=== PATIENT | female | born 1965 | race Asian ===

== ENCOUNTER 2025-05-10 11:02 | Inpatient (IN) | payer OTHER, MEDICAID ==
[~2025-05-10] VITALS: Ht 162.6 cm; Wt 84.4 kg
[2025-05-10 11:38] LABS: BASOPHILS % (AUTO) 1.3 % (0.0-2.0); HEMATOCRIT 24.4 % (36-46); HEMOGLOBIN 8.3 g/dL (12.0-16.0); LYMPHOCYTES % (AUTO) 15.3 % (22.0-44.0); MEAN CORPUSCULAR VOLUME 91 fL (80-100); MONOCYTES # (AUTO) 0.3 K/uL (0.1-1.0); MONOCYTES % (AUTO) 4.8 % (2.0-9.0); NEUTROPHILS # (AUTO) 5.1 K/uL (1.8-7.7); NEUTROPHILS % (AUTO) 76.6 % (40.0-70.0); PLATELET COUNT (AUTO) 215 K/uL (150-450); RED BLOOD CELL COUNT(AUTO) 2.68 MIL/uL (4.00-5.20); RED CELL DISTRIBUTION WIDTH 13.7 % (11.5-14.5); WHITE BLOOD COUNT (AUTO) 6.6 K/uL (4.5-11.0)
[2025-05-10] MEDS: TRANEXAMIC ACID 1,000 MG/10 ML VIAL TP ONE (11:41)
[2025-05-10 11:42] LABS: ANION GAP 5 mmol/L (8-16); CALCIUM, TOTAL 8.2 mg/dL (8.8-10.5); CARBON DIOXIDE 32 mmol/L (22-29); CHLORIDE 100 mmol/L (98-107); CREATININE 7.29 mg/dL (0.60-1.30); GLOMERULAR FILTR. RATE CALC 6 mL/min (>60); GLUCOSE,RANDOM 106 mg/dL (70-110); POTASSIUM 5.2 mmol/L (3.5-5.1); SODIUM SERUM 137 mmol/L (136-145); UREA NITROGEN, BLOOD 54 mg/dL (7-18)
[2025-05-10] MEDS: LIDOCAINE 1%/EPI 1:200,000/PF 10 ML VIAL SQ ONE (11:42)
[2025-05-10 11:48] LABS: BILIRUBIN,DIRECT 0.1 mg/dL (0.00-0.20); BILIRUBIN,TOTAL 0.4 mg/dL (0.1-1.0); TOTAL PROTEIN, SERUM 6.8 g/dL (6.4-8.2)
[2025-05-10 11:53] LABS: TROPONIN I-HIGH SENSITIVITY 142 ng/L (<51)
[2025-05-10 14:01] LABS: TROPONIN I-HIGH SENSITIVITY 133 ng/L (<51)
[2025-05-10] MEDS ORDERED: ONDANSETRON HCL 4 MG/2 ML VIAL IVP PRN (16:00)
[2025-05-10] MEDS ORDERED: ACETAMINOPHEN 325 MG TABLET PO PRN (16:00)
[2025-05-10] MEDS ORDERED: HEPARIN SODIUM,PORCINE 5,000 UNITS/ML VIAL SQ SCH (16:00)
[2025-05-10] MEDS: ASPIRIN 81 MG CHEWABLE TABLET PO ONE (16:09)
[2025-05-10 16:12] LABS: % IRON SATURATION 104.7 % (22-44)
[2025-05-10 17:06] LABS: TROPONIN I-HIGH SENSITIVITY 162 ng/L (<51)
[2025-05-10 21:00] VITALS: BP 121/95; PULSE 85; RESP 18; TEMP 98.2; O2SAT 99
[2025-05-10] MEDS: DOCUSATE SODIUM 100 MG CAPSULE PO SCH (21:00)
[2025-05-10 23:59] LABS: BASOPHILS % (AUTO) 1.9 % (0.0-2.0); EOSINOPHILS % (AUTO) 3.6 % (1.0-6.0); LYMPHOCYTES # (AUTO) 1.7 K/uL (1.0-4.8); LYMPHOCYTES % (AUTO) 32.6 % (22.0-44.0); MEAN CORPUSCULAR HEMOGLOBIN 30.1 pg (26.0-34.0); MEAN CORPUSCULAR VOLUME 91 fL (80-100); MONOCYTES # (AUTO) 0.3 K/uL (0.1-1.0); MONOCYTES % (AUTO) 6.5 % (2.0-9.0); NEUTROPHILS # (AUTO) 2.9 K/uL (1.8-7.7); NEUTROPHILS % (AUTO) 55.4 % (40.0-70.0); PLATELET COUNT (AUTO) 190 K/uL (150-450); RED BLOOD CELL COUNT(AUTO) 2.29 MIL/uL (4.00-5.20); RED CELL DISTRIBUTION WIDTH 13.8 % (11.5-14.5); WHITE BLOOD COUNT (AUTO) 5.2 K/uL (4.5-11.0)
[2025-05-11] VITALS (18 sets, daily range): BP systolic 112–170; BP diastolic 44–84; PULSE 69–85; RESP 17–18; TEMP 98.1–99; O2SAT 98–100
[2025-05-11 00:05] LABS: HEMATOCRIT 20.9 % (36-46); HEMOGLOBIN 6.9 g/dL (12.0-16.0)
[2025-05-11] MEDS ORDERED: SODIUM CHLORIDE 0.9% 250 ML IV ONE (00:43)
[2025-05-11] MEDS: PANTOPRAZOLE SODIUM 80 MG in SODIUM CHLORIDE 0.9% 100 ML IV SCH (01:11)
[2025-05-11] MEDS: PANTOPRAZOLE SODIUM 40 MG/VIAL IVP ONE (06:39)
[2025-05-11 07:15] LABS: GLUCOMETER DEV NAME(LOC) 5N.2C; GLUCOSE,POINT OF CARE 105 MG/DL (70-110)
[2025-05-11 10:11] LABS: BASOPHILS % (AUTO) 1.7 % (0.0-2.0); EOSINOPHILS % (AUTO) 2.5 % (1.0-6.0); HEMATOCRIT 24.7 % (36-46); HEMOGLOBIN 8.3 g/dL (12.0-16.0); LYMPHOCYTES # (AUTO) 1.7 K/uL (1.0-4.8); LYMPHOCYTES % (AUTO) 30.9 % (22.0-44.0); MEAN CORPUSCULAR HEMOGLOBIN 30.8 pg (26.0-34.0); MEAN CORPUSCULAR HGB CONC 33.4 G/dL (31.0-37.0); MEAN CORPUSCULAR VOLUME 92 fL (80-100); MONOCYTES # (AUTO) 0.3 K/uL (0.1-1.0); MONOCYTES % (AUTO) 6.2 % (2.0-9.0); NEUTROPHILS # (AUTO) 3.1 K/uL (1.8-7.7); NEUTROPHILS % (AUTO) 58.7 % (40.0-70.0); PLATELET COUNT (AUTO) 197 K/uL (150-450); RED BLOOD CELL COUNT(AUTO) 2.69 MIL/uL (4.00-5.20); WHITE BLOOD COUNT (AUTO) 5.4 K/uL (4.5-11.0)
[2025-05-11 10:24] LABS: CALCIUM, TOTAL 8.1 mg/dL (8.8-10.5); CREATININE 9.29 mg/dL (0.60-1.30)
[2025-05-11 10:28] LABS: POTASSIUM 6.7 mmol/L (3.5-5.1)
[2025-05-11] MEDS: PANTOPRAZOLE SODIUM 40 MG/VIAL IVP SCH (11:18)
[2025-05-11] MEDS ORDERED: HEPARIN SODIUM,PORCINE 5,000 UNITS/ML VIAL SQ SCH (16:00)
[2025-05-11] MEDS ORDERED: LISI-663 PO (16:15)
[2025-05-11] MEDS ORDERED: SEVE0.8P7 PO (16:15)
[2025-05-11] MEDS ORDERED: NITR0.4T50 SL (16:15)
[2025-05-11] MEDS ORDERED: FOLI0.8T54 PO (16:15)
[2025-05-11] MEDS ORDERED: ATOR40TA71 PO (16:15)
[2025-05-11] MEDS ORDERED: AMLO5TAB66 PO (16:15)
[2025-05-11] MEDS ORDERED: ASPI81TA87 PO (16:15)
[2025-05-11] MEDS ORDERED: METF-1211 PO (16:18)
[2025-05-11] MEDS ORDERED: SEVE800T39 PO (18:10)
[2025-05-11 18:50] LABS: TROPONIN I-HIGH SENSITIVITY 168 ng/L (<51)
[2025-05-11] MEDS: CALCIUM GLUCONATE 100 MG/ML 10 ML IVP ONE ×2 (18:55→23:50)
[2025-05-11] MEDS ORDERED: DEXTROSE 50%-WATER 25 GM/50 ML SYRINGE IVP PRN (19:00)
[2025-05-11] MEDS ORDERED: NITROGLYCERIN 0.4 MG SUBLINGUAL TABLET #25 SL PRN (19:00)
[2025-05-11] MEDS ORDERED: METO50 PO (19:19)
[2025-05-11] MEDS: SODIUM ZIRCONIUM CYCLOSILICATE 10 GM POWDER PACKET PO ONE (19:28)
[2025-05-11] MEDS: SODIUM BICARBONATE [ADULT] 8.4% 50 MEQ/50 ML SYRINGE IVP ONE (19:29)
[2025-05-11] MEDS: DEXTROSE 50%-WATER 25 GM/50 ML SYRINGE IVP ONE ×2 (19:29→23:43)
[2025-05-11] MEDS: INSULIN REGULAR, HUMAN 100 UNITS/ML IVP ONE ×2 (19:35→23:48)
[2025-05-11 22:30] LABS: CALCIUM, TOTAL 8.3 mg/dL (8.8-10.5); CREATININE 9.86 mg/dL (0.60-1.30); POTASSIUM 5.9 mmol/L (3.5-5.1)
[2025-05-11] MEDS: SODIUM POLYSTYRENE SULFONATE 15 GM/60 ML SUSPENSION BOTTLE PO ONE (23:40)
[2025-05-11 23:41] LABS: GLUCOMETER DEV NAME(LOC) 5S.1D; GLUCOSE,POINT OF CARE 93 MG/DL (70-110)
[2025-05-11 23:41] LABS: GLUCOMETER DEV NAME(LOC) 5N.2C; GLUCOSE,POINT OF CARE 131 MG/DL (70-110)
[2025-05-12] VITALS (8 sets, daily range): BP systolic 148–182; BP diastolic 61–84; PULSE 73–97; RESP 17–20; TEMP 98.1–98.8; O2SAT 97–99
[2025-05-12 00:11] LABS: GLUCOMETER DEV NAME(LOC) 5S.1D; GLUCOSE,POINT OF CARE 142 MG/DL (70-110)
[2025-05-12] MEDS ORDERED: 0.9% SODIUM CHLORIDE 5 ML NEB SOLUTION NEB ONE (00:41)
[2025-05-12] MEDS: ALBUTEROL SULFATE 2.5 MG/0.5 ML NEB SOLUTION NEB ONE (00:44)
[2025-05-12] MEDS: HydrALAZINE HCL 20 MG/ML VIAL IVP PRN (02:39)
[2025-05-12 06:54] LABS: BASOPHILS % (AUTO) 0.9 % (0.0-2.0); HEMATOCRIT 23.1 % (36-46); HEMOGLOBIN 7.8 g/dL (12.0-16.0); LYMPHOCYTES # (AUTO) 1.7 K/uL (1.0-4.8); LYMPHOCYTES % (AUTO) 25.2 % (22.0-44.0); MEAN CORPUSCULAR HEMOGLOBIN 30.9 pg (26.0-34.0); MEAN CORPUSCULAR HGB CONC 33.7 G/dL (31.0-37.0); MEAN CORPUSCULAR VOLUME 92 fL (80-100); MONOCYTES # (AUTO) 0.5 K/uL (0.1-1.0); NEUTROPHILS # (AUTO) 4.2 K/uL (1.8-7.7); NEUTROPHILS % (AUTO) 63.9 % (40.0-70.0); PLATELET COUNT (AUTO) 200 K/uL (150-450); RED BLOOD CELL COUNT(AUTO) 2.51 MIL/uL (4.00-5.20); RED CELL DISTRIBUTION WIDTH 14.2 % (11.5-14.5); WHITE BLOOD COUNT (AUTO) 6.6 K/uL (4.5-11.0)
[2025-05-12 07:09] LABS: ANION GAP 9 mmol/L (8-16); CALCIUM, TOTAL 8.7 mg/dL (8.8-10.5); CARBON DIOXIDE 27 mmol/L (22-29); CHLORIDE 99 mmol/L (98-107); CREATININE 10.12 mg/dL (0.60-1.30); GLOMERULAR FILTR. RATE CALC 4 mL/min (>60); GLUCOSE,RANDOM 97 mg/dL (70-110); POTASSIUM 5.7 mmol/L (3.5-5.1); SODIUM SERUM 135 mmol/L (136-145); UREA NITROGEN, BLOOD 66 mg/dL (7-18)
[2025-05-12 07:11] LABS: TROPONIN I-HIGH SENSITIVITY 166 ng/L (<51)
[2025-05-12] MEDS: SEVELAMER CARBONATE 800 MG TABLET PO SCH (08:16)
[2025-05-12] MEDS: AmLODIPine BESYLATE 5 MG TABLET PO SCH (08:17)
[2025-05-12] MEDS: ATORVASTATIN CALCIUM 40 MG TABLET PO SCH (08:17)
[2025-05-12] MEDS: FOLIC ACID/VIT B COMPLEX AND C TABLET PO SCH (08:17)
[2025-05-12] MEDS: EPOETIN ALFA 10,000 UNITS/ML 2 ML VIAL SQ SCH (09:14)
[2025-05-12 11:26] LABS: GLUCOMETER DEV NAME(LOC) 5S.1D; GLUCOSE,POINT OF CARE 103 MG/DL (70-110)
[2025-05-12 11:26] LABS: GLUCOMETER DEV NAME(LOC) 5N.2C; GLUCOSE,POINT OF CARE 147 MG/DL (70-110)
[2025-05-12] MEDS: INSULIN LISPRO 100 UNITS/ML SQ PRN (12:38)
[2025-05-12] MEDS ORDERED: PANT-31 PO (13:04)
[2025-05-12] MEDS ORDERED: SODI5POW3 PO (13:05)
[2025-05-12] MEDS ORDERED: SODIUM CHLORIDE 0.9% 2,000 ML ONE (14:48)
== END 2025-05-12 16:40 | disposition home or self-care (01) | DRG 811 ==
LOC: EMS 11:06 → EDH 14:14 → 5S 20:47
PROVIDERS: ADMIT Internal Medicine; ATTEND Internal Medicine
PROC: 30233N1 Transfusion of Nonautologous Red Blood Cells into Peripheral Vein, Percutaneous Approach (ICD-10-PCS; principal; 2025-05-11)
DX: D62 Acute posthemorrhagic anemia (principal); N18.6 End stage renal disease; I12.0 Hypertensive chronic kidney disease with stage 5 chronic kidney disease or end stage renal disease; E11.22 Type 2 diabetes mellitus with diabetic chronic kidney disease; E87.5 Hyperkalemia; I25.10 Atherosclerotic heart disease of native coronary artery without angina pectoris; I95.9 Hypotension, unspecified; E83.39 Other disorders of phosphorus metabolism; Z79.899 Other long term (current) drug therapy; Z87.891 Personal history of nicotine dependence; Z99.2 Dependence on renal dialysis
CPT/HCPCS: 71045; 80048; 80076; 82271; 82550; 82962; 83540; 83550; 83735; 83880; 84484; 85025; 85045; 85610; 85730; 86850; 86900; 86901; 86923; 93005; 93306; 94640; 99285; J0360; J0610; J0885; J1815; J2405; J2470; J3490; J7030; J7050; P9016; 36415-L1; 36415-TC; J7613